=== PATIENT | female | born 1985 | race Caucasian/White ===

== ENCOUNTER 2018-05-11 15:19 | Outpatient (CLI) | payer BC | END 2018-05-11 20:40 | disposition home or self-care (01) | LOC: OBT 15:19 → L-D 15:20 → OBT 20:40 | DX: O62.9 Abnormality of forces of labor, unspecified (principal); O24.419 Gestational diabetes mellitus in pregnancy, unspecified control; Z3A.38 38 weeks gestation of pregnancy | CPT/HCPCS: 76815; 76818; 82962 ==

== ENCOUNTER 2018-05-21 09:46 | Inpatient (IN) | payer BC ==
[2018-05-21] MEDS ORDERED: AMPICILLIN 2 GM/NS (PMX) 100 ML IV (10:30)
[2018-05-21] MEDS ORDERED: MISOPROSTOL 200 MCG TAB PR ×2 (10:30→11:30)
[2018-05-21] MEDS ORDERED: CARBOPROST 250 MCG INJ IM ×2 (10:30→11:30)
[2018-05-21] MEDS ORDERED: OXYTOCIN 30 UNITS/LR 500 ML IV ×2 (10:30→11:30)
[2018-05-21] MEDS ORDERED: LIDOCAINE 1% (MPF) 30 ML INJ INJ (10:30)
[2018-05-21] MEDS ORDERED: METHYLERGONOVINE 0.2 MG INJ IM ×2 (10:30→11:30)
[2018-05-21 10:31] LABS: ADD MAN DIFF? NO
[2018-05-21 10:40] LABS: WHITE BLOOD COUNT 12.3 10^3/ul (4.8-10.8)
[2018-05-21 10:40] LABS: BASOPHILS % 0.3 % (0.0-2.0); EOSINOPHILS # 0.1 10^3/ul (0.0-0.5); EOSINOPHILS % 0.5 % (0.0-7.0); HEMATOCRIT 35.9 % (37.0-47.0); LYMPHOCYTES # 2.5 10^3/ul (0.8-2.9); MEAN CORPUSCULAR HEMOGLOBIN 27.4 pg (29.0-33.0); MEAN CORPUSCULAR HGB CONC 33.4 g/dl (32.0-37.0); MEAN PLATELET VOLUME 10.6 fl (7.4-10.4); MONOCYTE # 0.7 10^3/ul (0.3-0.9); MONOCYTES % 5.9 % (0.0-11.0); NEUTROPHIL # 8.9 10^3/ul (1.6-7.5); NEUTROPHILS % 72.3 % (39.0-77.0); PLATELET COUNT 292 10^3/UL (140-415); RED BLOOD COUNT 4.38 10^6/ul (4.20-5.40); RED CELL DISTRIBUTION WIDTH 12.9 % (11.5-14.5)
[2018-05-21] MEDS: BUTORPHANOL 2 MG INJ IV (10:43)
[2018-05-21] MEDS: LACTATED RINGER'S 1,000 ML IV (10:44)
[2018-05-21 11:01] LABS: INR 0.86; PARTIAL THROMBOPLASTIN TIME 29.8 Sec (23.0-35.0); PROTIME 11.8 Sec (11.9-14.9); PT RATIO 0.9
[2018-05-21] MEDS ORDERED: LIDOCAINE 1% (MPF) 30 ML INJ (11:10)
[2018-05-21] MEDS: OXYTOCIN 30 UNITS/LR 500 ML IV ×3 (11:15→16:37)
[2018-05-21] MEDS ORDERED: OXYCODONE/ASPIRIN (4.88/325) TAB PO (11:30)
[2018-05-21] MEDS ORDERED: NACL 0.9% 3 ML SYG IV (11:30)
[2018-05-21] MEDS ORDERED: ACETAMINOPHEN 325 MG TAB PO (11:30)
[2018-05-21] MEDS: IBUPROFEN 600 MG TAB PO ×2 (13:30→18:07)
[2018-05-21] MEDS ORDERED: AMPICILLIN 1 GM/NS (PMX) 50 ML IV (14:00)
[2018-05-21 15:33] LABS: RAPID PLASMA REAGIN NONREACTIVE (NR)
[2018-05-21] MEDS: BENZOCAINE 20% 56 ML SPRAY TOP (16:38)
[2018-05-21] MEDS: WITCH HAZEL/GLYCERIN PAD PR (16:38)
[2018-05-21] MEDS: LANOLIN 7 GM TUBE TOP (16:38)
[2018-05-22] MEDS: IBUPROFEN 600 MG TAB PO ×4 (00:18→18:22)
[2018-05-22 07:41] LABS: ADD MAN DIFF? NO
[2018-05-22 07:45] LABS: WHITE BLOOD COUNT 16.7 10^3/ul (4.8-10.8)
[2018-05-22 07:45] LABS: BASOPHIL # 0.1 10^3/ul (0.0-0.1); BASOPHILS % 0.4 % (0.0-2.0); EOSINOPHILS # 0.1 10^3/ul (0.0-0.5); EOSINOPHILS % 0.4 % (0.0-7.0); HEMATOCRIT 36.9 % (37.0-47.0); HEMOGLOBIN 11.9 g/dl (12.0-16.0); LYMPHOCYTES # 2.7 10^3/ul (0.8-2.9); LYMPHOCYTES % 16.3 % (15.0-51.0); MEAN CORPUSCULAR HEMOGLOBIN 27.1 pg (29.0-33.0); MEAN CORPUSCULAR HGB CONC 32.2 g/dl (32.0-37.0); MEAN CORPUSCULAR VOLUME 84.1 fl (82.0-101.0); MEAN PLATELET VOLUME 10.9 fl (7.4-10.4); MONOCYTE # 0.8 10^3/ul (0.3-0.9); MONOCYTES % 4.7 % (0.0-11.0); NEUTROPHILS % 77.7 % (39.0-77.0); PLATELET COUNT 271 10^3/UL (140-415); RED BLOOD COUNT 4.39 10^6/ul (4.20-5.40); RED CELL DISTRIBUTION WIDTH 12.9 % (11.5-14.5)
[2018-05-23] MEDS: OXYCODONE/ASPIRIN (4.88/325) TAB PO (03:53)
[2018-05-23] MEDS: IBUPROFEN 600 MG TAB PO ×3 (06:00→12:00)
== END 2018-05-23 12:00 | disposition home or self-care (01) | DRG 807 ==
LOC: OBT 09:46 → L-D 09:47 → OBT 09:51 → L-D 09:51 → PP1 13:14
PROVIDERS: Obstetrics & Gynecology
PROC: 10E0XZZ Delivery of Products of Conception, External Approach (ICD-10-PCS; principal; 2018-05-21)
PROC: 0HQ9XZZ Repair Perineum Skin, External Approach (ICD-10-PCS; 2018-05-21)
DX: O99.214 Obesity complicating childbirth (principal); Z37.0 Single live birth; E66.9 Obesity, unspecified; O70.0 First degree perineal laceration during delivery; Z3A.39 39 weeks gestation of pregnancy
CPT/HCPCS: 85025; 85610; 85730; 86592; 86850; 86900; 86901; 99464